=== PATIENT | male | born 1955 | race African-American/Black ===

== ENCOUNTER 2016-08-16 19:42 | Emergency (ER) | payer OTHER ==
[~2016-08-16] VITALS: Ht 172.7 cm; Wt 74.8 kg
[~2016-08-16 19:42] MED LIST: KEFLEX500 MG PO; NOHOMEMEDICATIONS
[2016-08-16 22:12] VITALS: BP 138/79
== END 2016-08-16 22:16 | disposition home or self-care (01) ==
LOC: ER 19:42
DX: T50.905A Adverse effect of unspecified drugs, medicaments and biological substances, initial encounter (principal); F32.9 Major depressive disorder, single episode, unspecified; R45.851 Suicidal ideations; F10.99 Alcohol use, unspecified with unspecified alcohol-induced disorder; F17.210 Nicotine dependence, cigarettes, uncomplicated; Y92.89 Other specified places as the place of occurrence of the external cause

== ENCOUNTER 2018-11-03 23:23 | Emergency (ER) | payer OTHER ==
[~2018-11-03] VITALS: Ht 175.3 cm; Wt 72.6 kg
[2018-11-04 03:08] VITALS: BP 152/92
== END 2018-11-04 03:09 | disposition home or self-care (01) ==
LOC: ER 23:23
DX: F10.129 Alcohol abuse with intoxication, unspecified (principal); F17.210 Nicotine dependence, cigarettes, uncomplicated

== ENCOUNTER 2018-11-11 11:43 | Emergency (ER) | payer OTHER ==
[~2018-11-11] VITALS: Ht 180.3 cm; Wt 74.8 kg
[2018-11-11 14:45] VITALS: BP 97/71
== END 2018-11-11 14:50 | disposition home or self-care (01) ==
LOC: ER 11:43
DX: F10.10 Alcohol abuse, uncomplicated (principal); Y90.9 Presence of alcohol in blood, level not specified; M25.562 Pain in left knee; M25.512 Pain in left shoulder; F17.210 Nicotine dependence, cigarettes, uncomplicated

== ENCOUNTER 2019-05-22 17:47 | Emergency (ER) | payer OTHER ==
[~2019-05-22] VITALS: Ht 172.7 cm; Wt 81.7 kg
[2019-05-22 20:41] VITALS: BP 104/57
== END 2019-05-22 22:13 | disposition home or self-care (01) ==
LOC: ER 17:47
DX: F10.129 Alcohol abuse with intoxication, unspecified (principal); F17.210 Nicotine dependence, cigarettes, uncomplicated

== ENCOUNTER 2019-08-10 20:16 | Emergency (ER) | payer OTHER ==
[~2019-08-10] VITALS: Ht 172.7 cm; Wt 67.1 kg
[2019-08-11 00:56] VITALS: BP 108/78
== END 2019-08-11 00:57 | disposition home or self-care (01) ==
LOC: ER 20:16
DX: S80.01XA Contusion of right knee, initial encounter (principal); S80.212A Abrasion, left knee, initial encounter; F10.129 Alcohol abuse with intoxication, unspecified; G89.29 Other chronic pain; M25.562 Pain in left knee; F17.210 Nicotine dependence, cigarettes, uncomplicated; W18.39XA Other fall on same level, initial encounter; Y92.89 Other specified places as the place of occurrence of the external cause; Y93.89 Activity, other specified; Y99.8 Other external cause status

== ENCOUNTER 2019-10-26 20:23 | Emergency (ER) | payer OTHER ==
[~2019-10-26] VITALS: Ht 172.7 cm; Wt 68.0 kg
[2019-10-27 00:28] VITALS: BP 132/68
== END 2019-10-27 00:18 | disposition home or self-care (01) ==
LOC: ER 20:23
DX: F10.920 Alcohol use, unspecified with intoxication, uncomplicated (principal); S30.810A Abrasion of lower back and pelvis, initial encounter; F17.210 Nicotine dependence, cigarettes, uncomplicated; X58.XXXA Exposure to other specified factors, initial encounter; Y93.89 Activity, other specified; Y92.89 Other specified places as the place of occurrence of the external cause; Y99.8 Other external cause status

== ENCOUNTER 2019-11-19 10:21 | Emergency (ER) | payer OTHER ==
[~2019-11-19] VITALS: Ht 172.7 cm; Wt 74.8 kg
[2019-11-19 11:57] VITALS: BP 116/69
== END 2019-11-19 12:03 | disposition home or self-care (01) ==
LOC: ER 10:21
DX: R07.89 Other chest pain (principal); L84 Corns and callosities; R10.9 Unspecified abdominal pain; F10.920 Alcohol use, unspecified with intoxication, uncomplicated; F17.210 Nicotine dependence, cigarettes, uncomplicated

== ENCOUNTER 2019-11-28 20:20 | Emergency (ER) | payer OTHER ==
[~2019-11-28] VITALS: Ht 177.8 cm; Wt 90.7 kg
[2019-11-28] MEDS ORDERED: NEURONTIN 300300 M1 PO (21:27)
[2019-11-29 05:20] VITALS: BP 125/67
== END 2019-11-29 05:10 | disposition home or self-care (01) ==
LOC: ER 20:20
DX: F10.129 Alcohol abuse with intoxication, unspecified (principal); Y90.9 Presence of alcohol in blood, level not specified; F17.210 Nicotine dependence, cigarettes, uncomplicated

== ENCOUNTER 2020-07-12 18:18 | Emergency (ER) | payer OTHER ==
[~2020-07-12] VITALS: Ht 175.3 cm; Wt 83.9 kg
[~2020-07-12 18:18] MED LIST changes: +NEURONTIN 300300 M1 PO
[2020-07-12 21:06] VITALS: BP 109/59
== END 2020-07-12 21:09 | disposition home or self-care (01) ==
LOC: ER 18:18
DX: F10.920 Alcohol use, unspecified with intoxication, uncomplicated (principal); M79.675 Pain in left toe(s); F17.210 Nicotine dependence, cigarettes, uncomplicated

== ENCOUNTER 2020-08-06 17:27 | Emergency (ER) | payer OTHER ==
[~2020-08-06] VITALS: Ht 172.7 cm; Wt 63.5 kg
[2020-08-06 17:37] VITALS: BP 146/80
== END 2020-08-06 20:29 | disposition home or self-care (01) ==
LOC: ER 17:27
DX: M25.562 Pain in left knee (principal); M79.672 Pain in left foot; F17.210 Nicotine dependence, cigarettes, uncomplicated

== ENCOUNTER 2020-09-26 12:19 | Emergency (ER) | payer OTHER ==
[~2020-09-26] VITALS: Ht 172.7 cm; Wt 65.8 kg
[2020-09-26 12:20] VITALS: BP 137/85
== END 2020-09-26 13:28 | disposition home or self-care (01) ==
LOC: ER 12:19
DX: F10.129 Alcohol abuse with intoxication, unspecified (principal); F17.210 Nicotine dependence, cigarettes, uncomplicated; Y90.9 Presence of alcohol in blood, level not specified

== ENCOUNTER 2020-09-29 17:45 | Emergency (ER) | payer OTHER ==
[~2020-09-29] VITALS: Ht 180.3 cm; Wt 72.6 kg
== END 2020-09-29 18:31 | disposition home or self-care (01) ==
LOC: ER 17:45
DX: F10.10 Alcohol abuse, uncomplicated (principal); F17.210 Nicotine dependence, cigarettes, uncomplicated; Y90.9 Presence of alcohol in blood, level not specified

== ENCOUNTER 2020-10-24 14:02 | Emergency (ER) | payer OTHER ==
[~2020-10-24] VITALS: Ht 177.8 cm; Wt 81.7 kg
[2020-10-24 14:02] VITALS: BP 141/81
== END 2020-10-24 16:32 | disposition home or self-care (01) ==
LOC: ER 14:02
DX: F10.129 Alcohol abuse with intoxication, unspecified (principal); M25.562 Pain in left knee; F17.210 Nicotine dependence, cigarettes, uncomplicated; W18.30XA Fall on same level, unspecified, initial encounter; Y93.89 Activity, other specified; Y92.89 Other specified places as the place of occurrence of the external cause; Y99.9 Unspecified external cause status; Y90.9 Presence of alcohol in blood, level not specified